=== PATIENT | male | born 1950 | race Caucasian/White ===

== ENCOUNTER 2019-05-19 01:35 | Day surgery (SDC) | payer MEDICARE, MEDICAID, SELFPAY ==
[2019-05-12 10:46] VITALS: BMI 27.5
[2019-05-19] MEDS: LACTATED RINGERS 1,000 ML 150 ML IV CONT (10:52)
[2019-05-19] MEDS: AMPICILLIN 2 GM/NS 100 ML 2 GM/100 ML BAG IVPB (11:00)
--- NOTE | 2019-05-19 11:29 | P.PNAN_ITS ---
Anes - Initial Pre Proc Eval Procedure: Operation Date: 05/19/19 11:30 Proposed Procedures p Esophagogastroduodenoscopy & Colonoscopy - Mau Aragon MD Date/Time: 05/19/19 11:29 Surgeon: Mau Aragon MD Pre Op Diagnosis: Blood Loss Anemia Patient Data Age: 69 Gender: M Height: 6 ft 3 in Weight: 100 kg Allergies Allergy/AdvReac Type Severity Reaction Status Date / Time No Known Allergies Allergy Verified 05/19/19 10:51 Home Medications Medication Instructions Recorded Confirmed Type apixaban [Eliquis] 5 mg DAILY 05/12/19 05/12/19 History atorvastatin 20 mg DAILY 05/12/19 05/12/19 History bimatoprost [Lumigan] 1 drp OPHTHALMIC (EYE) DAILY 05/12/19 05/12/19 History brinzolamide-brimonidine 1 drp DAILY 05/12/19 05/12/19 History [Simbrinza] clopidogrel 75 mg DAILY 05/12/19 05/12/19 History gabapentin 300 mg DAILY 05/12/19 05/12/19 History lactulose 10 g PRN PRN 05/12/19 05/12/19 History levothyroxine 175 mcg DAILY 05/12/19 05/12/19 History losartan-hydrochlorothiazide 1 tablet PO DAILY 05/12/19 05/12/19 History metoclopramide HCl 10 mg 05/12/19 History metoprolol succinate 25 mg PO DAILY 05/12/19 05/12/19 History yvacvxtilazs-fhp-lhqm-FA-vit K 1 tablet PO DAILY 05/12/19 05/12/19 History [Adults Multivitamin] tamsulosin 0.4 mg PO DAILY 05/12/19 05/12/19 History Patient hx anesthesia problems: none Family hx anesthesia problems: none [facility] Past Medical History Medical History (Updated 05/19/19 @ 11:30 by Elias Rivera MD) Chronic a-fib HTN (hypertension) Hyperlipidemia AMARI (obstructive sleep apnea) Tobacco abuse Social History Social History Gender identity (if verbalized by the patient): Male Anes - Eval Final PreProcedure Day of Procedure 02/06/20 11:29 Patient weight: overweight Heart: regular rate and rhythm Lungs: clear to auscultation Airway: Mallampati scale class II Neurological: alert and oriented Last oral intake: >/= 8 hours ASA classification: III Emergent: no Anesthetic plan: proceed Anesthesia type and monitoring: general GIVS and standard monitoring Informed Consent: The patient's anesthetic plan and its attendant risks and benefits were discussed with the patient/family/POA. Questions were solicited and answers provided to the satisfaction of the patient/family/POA.
--- NOTE | 2019-05-19 11:34 | P.HP_ITS ---
History of Present Illness History of Present Illness Consent: Risks, benefits, and alternatives have been discussed and questions answered. Patient agrees to proceed with procedure. Chief complaint: Blood Loss Anemia Narrative: Ish Duran Jr. is a 69 year old W male referred for gastroscopy and colonoscopy for evaluation of iron deficiency anemia. Hemoglobin 8.8 hematocrit 30.5 MCV was 70.6. Platelet count was [id number]. Patient did have a colonoscopy over 3 years ago which time multiple tubular adenomas removed. Patient has never had upper endoscopy. Patient has no upper GI or lower GI tract symptoms. He has not seen any blood in stools. Patient has been on Eliquis in the past he did stop this 2 and half days ago. FOR[facility]LY [facility], [facility] Past Medical History Medical History Chronic a-fib HTN (hypertension) Hyperlipidemia AMARI (obstructive sleep apnea) Tobacco abuse Social History Social History Gender identity (if verbalized by the patient): Male Meds Home Medications and Allergies Home Medications Medication Instructions Recorded Confirmed Type apixaban [Eliquis] 5 mg DAILY 05/12/19 05/12/19 History atorvastatin 20 mg DAILY 05/12/19 05/12/19 History bimatoprost [Lumigan] 1 drp OPHTHALMIC (EYE) DAILY 05/12/19 05/12/19 History brinzolamide-brimonidine 1 drp DAILY 05/12/19 05/12/19 History [Simbrinza] clopidogrel 75 mg DAILY 05/12/19 05/12/19 History gabapentin 300 mg DAILY 05/12/19 05/12/19 History lactulose 10 g PRN PRN 05/12/19 05/12/19 History levothyroxine 175 mcg DAILY 05/12/19 05/12/19 History losartan-hydrochlorothiazide 1 tablet PO DAILY 05/12/19 05/12/19 History metoclopramide HCl 10 mg 05/12/19 History metoprolol succinate 25 mg PO DAILY 05/12/19 05/12/19 History laljzmmriwuc-kiu-wjec-FA-vit K 1 tablet PO DAILY 05/12/19 05/12/19 History [Adults Multivitamin] tamsulosin 0.4 mg PO DAILY 05/12/19 05/12/19 History Allergies Allergy/AdvReac Type Severity Reaction Status Date / Time No Known Allergies Allergy Verified 05/19/19 10:51 Exam Const: Orientation/consciousness: patient oriented x3 Resp: Auscultation: clear to auscultation bilaterally Cardio: Rate: regular rate Rhythm: regular rhythm Heart sounds: no murmurs GI: GI Palp: Yes Soft to palpation, No Tenderness to palpation present (GI), Yes No hepatosplenomegaly present and No Palpable mass present Auscultation: normal bowel sounds Neuro: General: patient oriented x3 and no focal motor deficits Extrem: General: no pedal edema Assessment and Plan Additional Plan gastroscopy and colonoscopy for evaluation of iron deficiency anemia
[2019-05-19] MEDS: GENTAMICIN 60 MG/50 ML NS 60 MG/50 ML BAG 100 MG IVPB (11:40)
[2019-05-19 12:05] VITALS: BP 133/62; O2SAT 100
[2019-05-19] MEDS: SIMETHICONE ORAL SUSPENSION 20 MG/0.3 ML 30 ML BOTTLE 0.6 ML IRRIGATION (12:22)
[2019-05-19 12:55] VITALS: BP 122/59; PULSE 71; RESP 14; O2SAT 95
[2019-05-19 13:05] VITALS: BP 133/62; PULSE 71; RESP 14; O2SAT 95
[2019-05-19 13:15] VITALS: BP 105/52; PULSE 66; RESP 14; O2SAT 97
[2019-05-19 13:23] VITALS: BP 130/76; PULSE 67; RESP 25; O2SAT 97
== END 2019-05-19 14:30 | disposition home or self-care (01) ==
PROVIDERS: PCP Internal Medicine Gastroenterology; Visit Provider Internal Medicine Gastroenterology
PROC: 0DJ08ZZ Inspection of Upper Intestinal Tract, Via Natural or Artificial Opening Endoscopic (ICD-10-PCS; CPT 43235; principal; 2019-05-19 11:30)
DX: D50.9 Iron deficiency anemia, unspecified (principal); D12.8 Benign neoplasm of rectum; K29.50 Unspecified chronic gastritis without bleeding; D13.2 Benign neoplasm of duodenum; I48.20 Chronic atrial fibrillation, unspecified; I10 Essential (primary) hypertension; E78.5 Hyperlipidemia, unspecified; G47.33 Obstructive sleep apnea (adult) (pediatric); Z79.01 Long term (current) use of anticoagulants; Z79.02 Long term (current) use of antithrombotics/antiplatelets; Z72.0 Tobacco use
CPT/HCPCS: 45385; 43239; 88305; J0290; J1580; J2704; J7120